=== PATIENT | female | born 1955 ===

== ENCOUNTER 2021-10-02 01:17 | Inpatient (IN) | payer OTHER, BC ==
--- OUTSIDE RECORDS SUMMARY | 2021-10-02 01:21 | XMS REPORT | Continuity of Care Document ---
:1955 Author Organization [facility] t Address [address] [place] [address] Care Team Providers Name Role Phone None Primary Care Physician Unavailable RAPHAEL ROBLERO Attending Clinician Unavailable Marilou, H Attending Clinician Unavailable OLGA KRAFT Attending Clinician Unavailable Osbaldo MARINELLI Attending Clinician RAPHAEL ROBLERO Admitting Clinician Unavailable Marilou, H Admitting Clinician Unavailable KNOW Admitting Clinician Unavailable Payers Payer Name Policy Type Policy Number Effective Date Expiration Date S ource Problems This patient has no known problems. Allergies, Adverse Reactions, Alerts This patient has no known allergies or adverse reactions. Social History Social Habit Start Date Stop Date Quantity Comments Source Exposure to Not sure [facility] SARS-CoV-2 (event) Alcohol intake 2021-09-01 2021-09-01 .29 [facility] 00:00:00 Tobacco use and 2021-08-30 2021-08-30 Smokeless tobacco [facility] exposure 00:00:00 00:00:00 non-user Sex Ass[birth year] [facility] 00:00:00 00:00:00 Smoking Status Start Date Stop Date Source Never smoked tobacco [facility] Medications Ordered Filled Start Stop Current Ordering Indication Dosage Frequency Signature Comments Components Source Medication Medication Date Date Medication? Clinician (SIG) Name Name metroNIDAZO 2021- Yes [id number] FLAGYL 500 [facility] (Flagyl) 2-27 02- MG [facility] 500 MG 00:00: 05:59 TABS TAKE tablet 00 :00 BY MOUTH TWO AT 1 PM,TWO AT 2 PM,TWO AT 11 PM NIGHT BEFORE SURGERY. TOTAL OF 6 PILLS. neomycin 2021- Yes [id number] Neomycin [place] ([facility] 10-01 [facility] 500 MG 00:00: 05:59 oral tabs tablet 00 :00 take by mouth two at 2:00 pm,two 4:00 pm and two at 8PM DAY BEFORE SURGERY levothyroxi 2020-08 Yes 100ug QD Take 100 U T ne 1-22 mcg [facility] (Synthroid, 00:00: mouth 1 Levoxyl) 00 (one) time 100 MCG each day. tablet levothyroxi 2020-08 Yes 100ug QD Take 100 U T ne 1-22 mcg [facility] (Synthroid, 00:00: mouth 1 Levoxyl) 00 (one) time 100 MCG each day. tablet levothyroxi 2020-08 Yes 100ug QD Take 100 U T ne 1-22 mcg [facility] (Synthroid, 00:00: mouth 1 Levoxyl) 00 (one) time 100 MCG each day. tablet levothyroxi 2020-08 Yes 100ug QD Take 100 U T ne 1-22 mcg [facility] (Synthroid, 00:00: mouth 1 Levoxyl) 00 (one) time 100 MCG each day. tablet levothyroxi 2020-08 Yes 100ug QD Take 100 U T ne 1-22 mcg [facility] (Synthroid, 00:00: mouth 1 Levoxyl) 00 (one) time 100 MCG each day. tablet Vital Signs Vital Name Observation Time Observation Value Comments Source Systolic blood pressure 2021-08-30 21:41:00 148 mm[Hg] [facility] Diastolic blood pressure 2021-08-30 21:41:00 94 mm[Hg] [facility] Heart rate 2021-08-30 21:41:00 67 /min [facility] Body temperature 2021-08-30 21:41:00 36.94 Joya [facility] Body height 2021-08-30 21:41:00 160 cm [facility] Body weight 2021-08-30 21:41:00 48.716 kg [facility] BMI 2021-08-30 21:41:00 19.03 kg/m2 [facility] Procedures This patient has no known procedures. Encounters Start End Encounter Admission Attending Care Care Encounter Source Date/Time Date/Time Type Type Clinicians Facility Department ID 2021-09-28 Inpatient OSBALDO [id number] [facility] 13:51:44 RAFAEL Argutea [facility] 2021-09-05 Inpatient EL Marilou, [facility] [id number] [facility] 00:06:00 Boo [id number] [facility] 2021-08-05 Inpatient EM Marilou, [facility] PH[facility] [id number] [facility] 00:06:00 Boo [id number] [facility] 2021-07-05 Inpatient EM Marilou, [facility] PH[facility] [id number] [facility] 00:06:00 Boo [id number] [facility] 2021-06-05 Inpatient EM Marilou, [facility] [id number] [facility] 00:06:00 Boo 06 [facility] 2021-06-05 Inpatient EM Marilou, [facility] PH[facility] [id number] [facility] 00:06:00 Boo [id number] [facility] 2021-05-05 Inpatient EM Marilou, [facility] PH[facility] [id number] [facility] 00:06:00 Boo [id number] [facility] 2021-02-02 Inpatient EL Marilou, [facility] PH[facility] [id number] [facility] 00:07:00 Boo [id number] [facility] 2021-01-09 Inpatient EL DEBECHE [facility] [id number] [facility] 16:35:00 ABENA [id number] [facility] 2021-09-15 2021-09-15 Telephone RJ Roblero [facility] [id number] [place] 00:00:00 00:00:00 Rafael [facility] [id number] H [facility] [place] [id number] 2021-09-12 2021-09-12 Telephone RJ Roblero [facility] [id number] [place] 00:00:00 00:00:00 [facility] [id number] H [facility]alth [place] [id number] 2021-09-06 2021-09-06 Telephone RJ Roblero [facility] [id number] [place] 00:00:00 00:00:00 [facility] [id number] H [facility] [place] [id number] 2021-09-04 2021-09-04 Telephone RJ Roblero [facility] [id number] [place] 00:00:00 00:00:00 [facility] [id number] H [facility] [place] [id number] 2021-08-14 2021-09-04 Outpatient EL Marilou, HCAJAYDE MARIE [id number] [facility] 09:04:00 00:00:00 Boo [id number] [facility] 2021-08-30 2021-08-30 Office RJ Roblero [facility] [id number] [place] 15:00:00 16:36:56 Visit [facility] [id number] H [facility] [place] [id number] 2021-07-13 2021-08-04 Outpatient EM Marilou, [facility] FRANK [id number] [facility] 07:26:00 00:00:00 Boo [id number] [facility] 2021-06-08 2021-07-04 Outpatient EM Marilou, [facility] FRANK [id number] [facility] 07:59:00 00:00:00 Boo [id number] [facility] 2021-05-25 2021-06-04 Outpatient EM Marilou, [facility] FRANK [id number] [facility] 07:25:00 00:00:00 Boo [id number] [facility] 2021-05-25 2021-06-04 Outpatient EM Marilou, [facility] [id number] [facility] 07:25:00 00:00:00 Boo Cook [facility] 2021-04-11 2021-05-04 Outpatient EM Marilou, [facility] PHYT [id number] [facility] 15:47:00 00:00:00 Boo 80 [facility] 2021-04-11 2021-04-11 Outpatient EM Marilou, [facility] PHYT [id number] [facility] 15:47:00 15:47:00 Boo [id number] [facility] 2021-01-16 2021-02-01 Outpatient EL Marilou, [facility] PHYT [id number] [facility] 12:13:00 00:00:00 Boo [id number] [facility] Results This patient has no known results.
[2021-10-02] MEDS ORDERED: ONDANSETRON 4 MG/2 ML VIAL ONE (01:59)
[2021-10-02] MEDS ORDERED: NA CHLORIDE 0.9% 1,000 ML ONE ×2 (02:00→08:10)
[2021-10-02 02:23] LABS: Absolute Lymphocytes (CBC) 0.5 K/uL (0.7-4.9); Hematocrit 38.1 % (36.0-45.0); MPV 7.8 fL (7.6-11.3); RBC Red Blood Cell Count 4.64 M/uL (3.86-4.86)
[2021-10-02 02:24] LABS: Protime INR 1.06
[2021-10-02 02:30] LABS: Urine Blood Negative (Negative); Urine Glucose Negative (Negative); Urine Protein Negative (Negative); Urine Specific Gravity 1.025 (1.005-1.030); Urine pH 5.5 (5.0-7.0)
[2021-10-02 02:37] LABS: Albumin 3.7 g/dL (3.4-5.0); Bilirubin Direct 0.3 mg/dL (0-0.2); Bilirubin Total 1.3 mg/dL (0.2-1.0); Magnesium 1.6 mg/dL (1.8-2.4); Phosphorus 2.2 mg/dL (2.5-4.9); Potassium 3.3 mmol/L (3.5-5.1); Troponin High Sensitivity 67.7 pg/mL (<58.9)
[2021-10-02] MEDS ORDERED: KCL 20 MEQ/100 mL IVPB 100 ML IV ONE (03:03)
[2021-10-02] MEDS ORDERED: LORazepam 2 MG/ML VIAL ONE (03:13)
[2021-10-02 03:18] LABS: Blood Morphology Comment NOT SEEN (NOT SEEN); Platelet Estimate ADEQ
[2021-10-02] MEDS ORDERED: NA CHLORIDE 0.9% 500 ML ONE (04:05)
--- NOTE | 2021-10-02 04:06 | ER ---
Nurse's Notes [facility] Name: Suri Rouse Age: 66 yrs Sex: Female : 1955 Arrival Date: 10/02/2021 Time: 01:18 Bed 20 Private MD: Diagnosis: Hypo-osmolality and hyponatremia;Hypokalemia;Dehydration;Anxiety Presentation: 10/02 02:45 Chief complaint: EMS states: PT WAS GOING TO HAVE A COLOSTOMY PLACED TOMORROW MORNING kd3 AND PT STARTED HAVING AMS. PT WAS TAKING PREP FOR SURGERY IN THE AM. Ebola Screen: No symptoms or risks identified at this time. Initial Sepsis Screen: Does the patient meet any 2 criteria? No. Patient's initial sepsis screen is negative. Does the patient have a suspected source of infection? No. Patient's initial sepsis screen is negative. Risk Assessment: Do you want to hurt yourself or someone else? Patient reports no desire to harm self or others. Onset of symptoms was October 02, 2021. 02:45 Method Of Arrival: EMS kd3 02:45 Acuity: SARAH 3 kd3 15:58 Coronavirus screen: At this time, the client does not indicate any symptoms associated ld1 with coronavirus-19. Triage Assessment: 02:52 General: Appears uncomfortable, ill, Behavior is calm, cooperative. Pain: Denies pain. kd3 Neuro: Level of Consciousness is awake, confused, Oriented to person, place. Respiratory: Respiratory effort is unlabored, Respiratory pattern is hyperventilation. 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 Flu vaccine is not up to date. It has been more than one year since last vaccine. - Social history:: Smoking status: unknown. Screenin:53 Abuse screen: Denies threats or abuse. Denies injuries from another. Nutritional kd3 screening: No deficits noted. Tuberculosis screening: No symptoms or risk factors identified. Fall Risk IV access (20 points). Assessment: 03:46 General: Appears uncomfortable, ill, Behavior is cooperative. Neuro: Level of kd3 Consciousness is confused, Oriented to person, place. Vital Signs: 02:05 BP 145 / 75; Pulse 82; Resp 23; Temp 97.9; Pulse Ox 100% on R/A; kd3 03:47 BP 135 / 69; Pulse 82; Resp 20; Pulse Ox 100% on R/A; kd3 03:48 Weight 47.63 kg; Height 5 ft. 3 in. (160.02 cm); kd3 06:26 BP 128 / 66; Pulse 90; Resp 17; Pulse Ox 99% on R/A; Pain 0/10; kd3 03:48 Body Mass Index 18.60 (47.63 kg, 160.02 cm) kd3 ED Course: 01:18 Patient arrived in ED. wm 01:19 Blanco Lopez MD is Attending Physician. mh7 01:31 Magaly Ramos, RN is Primary Nurse. kd3 01:54 XRAY Chest (1 view) In Process Unspecified. EDMS 02:52 Triage completed. kd3 02:53 Arm band placed on left wrist. EKG completed in triage. Results shown to MD. kd3 02:54 Bed in low position. Call light in reach. Side rails up X2. kd3 03:29 CT Head Brain wo Cont In Process Unspecified. EDMS 04:03 Rafael Mcknight is Hospitalizing Provider. 7 07:23 Primary Nurse role handed off by Magaly Ramos, RN tw2 07:23 Cheyenne Mcgill, ERIN is Primary Nurse. tw2 15:53 No provider procedures requiring assistance completed. Patient admitted, IV remains in ld1 place. Administered Medications: 02:03 Drug: NS 0.9% 1000 ml Route: IV; Rate: 1000 ml; Site: right wrist; kd3 06:29 Follow up: IV Status: Completed infusion; IV Intake: 1000ml kd3 02:03 Drug: Zofran (Ondansetron) 4 mg Route: IVP; Site: right wrist; kd3 06:28 Follow up: Response: No adverse reaction kd3 03:08 Drug: Potassium Chloride 20 mEq Route: IV; Rate: per protocol; Site: right wrist; sf1 06:28 Follow up: IV Status: Completed infusion kd3 03:14 Drug: Ativan (LORazepam) 0.5 mg Route: IVP; Site: right wrist; sf1 06:28 Follow up: Response: No adverse reaction kd3 Intake: 06:29 IV: 1000ml; Total: 1000ml. kd3 Outcome: 04:05 Decision to Hospitalize by Provider. [facility] 15:54 Admitted to Med/surg accompanied by tech, via wheelchair, room 212, with chart, Report ld1 called to ERIN Tovar 15:54 Condition: stable 15:54 Instructed on the need for admit. 16:06 Patient left the ED. ld1 Signatures: Dispatcher [employer] EDCheyenne Gonzalez RN RN 2 Blanco Lopez MD MD 7 Ines Mckeon RN RN ld1 Fatimah Sosa Kyli, RN RN kd3 Gladys King RN RN sf1 Corrections: (The following items were deleted from the chart) 02:52 02:52 PMHx: None; kd3 kd3 02:58 02:52 Home Meds: None; kd3 kd3 02:58 02:52 PSHx: None; kd3 kd3
--- NOTE | 2021-10-02 04:06 | EDPHYS ---
Physician Documentation [facility] Name: Suri Rouse Age: 66 yrs Sex: Female : 1955 Arrival Date: 10/02/2021 Time: 01:18 Bed 20 Private MD: ED Physician Blanco Lopez HPI: 10/02 02:10 This 66 yrs old Unknown Female presents to ER via Unassigned with complaints of Altered mh7 Mental Status. 02:10 The patient presents with confusion, trouble concentrating. Onset: The symptoms/episode mh7 began/occurred last night. Possible causes: Bowel prep for surgery. Associated signs and symptoms: Pertinent positives: confusion, nausea, vomiting, Pertinent negatives: chest pain, combativeness, diaphoresis, headache, numbness, seizure, shortness of breath, tingling, weakness. Current symptoms: In the emergency department the patient's symptoms are unchanged from the initial presentation. Patient's baseline: Neuro: alert and fully oriented, Motor: no deficits, Ambulation: walks without assistance, Speech: normal. 02:10 Patient was doing bowel prep with MiraLAX yesterday and later started having some mh7 confusion and anxiety. Has been of EMS to bring to hospital for evaluation.. 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 Flu vaccine is not up to date. It has been more than one year since last vaccine. - Social history:: Smoking status: unknown. ROS: 02:10 Unable to obtain ROS due to Confused, anxious. mh7 Exam: 02:10 Head/Face: Normocephalic, atraumatic. Eyes: Pupils equal round and reactive to light, mh7 extra-ocular motions intact. Lids and lashes normal. Conjunctiva and sclera are non-icteric and not injected. Cornea within normal limits. Periorbital areas with no swelling, redness, or edema. Neck: Trachea midline, no thyromegaly or masses palpated, and no cervical lymphadenopathy. Supple, full range of motion without nuchal rigidity, or vertebral point tenderness. No Meningismus. Chest/axilla: Normal chest wall appearance and motion. Nontender with no deformity. No lesions are appreciated. Cardiovascular: Regular rate and rhythm with a normal S1 and S2. No gallops, murmurs, or rubs. Normal PMI, no JVD. No pulse deficits. Respiratory: Lungs have equal breath sounds bilaterally, clear to auscultation and percussion. No rales, rhonchi or wheezes noted. No increased work of breathing, no retractions or nasal flaring. Abdomen/GI: Soft, non-tender, with normal bowel sounds. No distension or tympany. No guarding or rebound. No evidence of tenderness throughout. Back: No spinal tenderness. No costovertebral tenderness. Full range of motion. Skin: Warm, dry with normal turgor. Normal color with no rashes, no lesions, and no evidence of cellulitis. MS/ Extremity: Pulses equal, no cyanosis. Neurovascular intact. Full, normal range of motion. 02:10 Constitutional: The patient appears in no acute distress, alert, awake, anxious. 02:10 Neuro: Orientation: to person, place, Mentation: slow to respond, confused, Memory: immediate memory is intact, recent memory is intact, Cranial nerves: is grossly normal based on the patient's age, Cerebellar function: is grossly normal based on the patient's age, Motor: is normal, Sensation: is normal, Gait: not tested. seizure activity, is not displayed by the patient, Abnormal movements: Tremulous. 02:10 Psych: Behavior/mood is cooperative, anxious, Oriented to person, place, Patient has no thoughts/intents to harm self or others. Delusions/hallucinations are not present. 02:10 ECG was reviewed by the Attending Physician. [facility] Vital Signs: 02:05 BP 145 / 75; Pulse 82; Resp 23; Temp 97.9; Pulse Ox 100% on R/A; kd3 03:47 BP 135 / 69; Pulse 82; Resp 20; Pulse Ox 100% on R/A; kd3 03:48 Weight 47.63 kg; Height 5 ft. 3 in. (160.02 cm); kd3 06:26 BP 128 / 66; Pulse 90; Resp 17; Pulse Ox 99% on R/A; Pain 0/10; kd3 03:48 Body Mass Index 18.60 (47.63 kg, 160.02 cm) kd3 MDM: 04:02 Differential Diagnosis: electrolyte abnormality, hypoglycemia, intracranial bleed, mh7 seizure, UTI, volume depletion. Data reviewed: vital signs, nurses notes, EMS record, lab test result(s), cardiac enzymes, CBC, electrolytes, urinalysis, EKG, radiologic studies, CT scan, plain films. Data interpreted: Pulse oximetry: on room air is 100 %. Interpretation: normal. Counseling: I had a detailed discussion with the patient and/or guardian regarding: the historical points, exam findings, and any diagnostic results supporting the discharge/admit diagnosis, lab results, radiology results, the need for further work-up and treatment in the hospital. Response to treatment: the patient's symptoms have markedly improved after treatment. 04:05 Patient medically screened. 10/02 01:26 Order name: Basic Metabolic Panel; Complete Time: 02:47 10/02 01:26 Order name: CBC with Diff; Complete Time: 03:40 10/02 01:26 Order name: LFT's; Complete Time: 02:47 10/02 01:26 Order name: Magnesium; Complete Time: 02:47 10/02 01:26 Order name: NT PRO-BNP; Complete Time: 02:47 10/02 01:26 Order name: PT-INR; Complete Time: 02:25 7 10/02 01:26 Order name: Troponin HS; Complete Time: 02:47 7 10/02 02:13 Order name: Phosphorus; Complete Time: 02:47 EDMS 10/02 02:13 Order name: Lipase; Complete Time: 02:47 EDMS 10/02 02:30 Order name: Urine Dipstick-Ancillary MS 10/02 02:31 Order name: Manual Differential; Complete Time: 03:40 [facility] 10/02 02:53 Order name: COVID-19/FLU A+B/RSV (Document "Date of Onset" if Symptomatic); Complete [facility] Time: 10:30 10/02 01:26 Order name: XRAY Chest (1 view) [facility] 10/02 01:26 Order name: EKG; Complete Time: 01:27 10/02 01:26 Order name: Cardiac monitoring; Complete Time: 01:31 7 10/02 01:26 Order name: EKG - Nurse/Tech; Complete Time: :55 7 10/02 01:26 Order name: IV Saline Lock; Complete Time: 01:55 10/02 01:26 Order name: Labs collected and sent; Complete Time: 01:55 7 10/02 02:49 Order name: CT Head Brain wo Cont 7 10/02 07:56 Order name: Troponin High Sensitivity; Complete Time: 10:30 EDMS 10/02 10:20 Order name: Basic Metabolic Panel; Complete Time: 10:30 EDMS 10/02 10:48 Order name: Basic Metabolic Panel [facility] 10/02 14:00 Order name: Troponin High Sensitivity [facility] 10/02 15:39 Order name: NT PRO-BNP [facility] 10/02 01:26 Order name: O2 Per Protocol; Complete Time: 01: 7 10/02 01:26 Order name: O2 Sat Monitoring; Complete Time: : [facility] 10/02 01:26 Order name: Urine Dipstick-Ancillary (obtain specimen); Complete Time: 02:59 EC:10 Rate is 79 beats/min. Rhythm is regular, Normal Sinus Rhythm with No ectopy. QRS [place] [facility] is Normal. DC interval is normal. QRS interval is normal. QT interval is normal. No Q waves. T waves are Normal. No ST changes noted. Clinical impression: Normal ECG. Administered Medications: 02:03 Drug: NS 0.9% 1000 ml Route: IV; Rate: 1000 ml; Site: right wrist; kd3 06:29 Follow up: IV Status: Completed infusion; IV Intake: 1000ml kd3 02:03 Drug: Zofran (Ondansetron) 4 mg Route: IVP; Site: right wrist; kd3 06:28 Follow up: Response: No adverse reaction kd3 03:08 Drug: Potassium Chloride 20 mEq Route: IV; Rate: per protocol; Site: right wrist; sf1 06:28 Follow up: IV Status: Completed infusion kd3 03:14 Drug: Ativan (LORazepam) 0.5 mg Route: IVP; Site: right wrist; sf1 06:28 Follow up: Response: No adverse reaction kd3 Disposition Summary: 10/02/21 04:05 Hospitalization Ordered Hospitalization Status: Inpatient Admission mh7 Provider: Rafael Mcknight Condition: Stable mh7 Problem: new mh7 Symptoms: have improved mh7 Bed/Room Type: Standard [facility] Location: Telemetry/MedSurg (Inpatient)(10/02/21 14:24) bd Room Assignment: 212(10/02/21 14:24) bd Diagnosis - Hypo-osmolality and hyponatremia mh7 - Hypokalemia mh7 - Dehydration mh7 - Anxiety mh7 Forms: - Medication Reconciliation Form mh7 - SBAR form mh7 Signatures: Dispatcher [employer] EDMS Christelle Linares Irene, RN RN iw Perez Medellin PA PA cp Holmes, Maurice, MD MD 7 Magaly Ramos RN RN kd3 Gladys King RN RN [email or web address] Nancy Cramer PA PA sb3 Corrections: (The following items were deleted from the chart) 02:13 01:43 LIPASE+C.LAB.BRZ ordered. EDMS EDMS 02:13 01:43 PHOSPHORUS+C.LAB.BRZ ordered. EDMS EDMS 02:52 02:52 PMHx: None; kd3 kd3 02:58 02:52 Home Meds: None; kd3 kd3 02:58 02:52 PSHx: None; kd3 kd3 09:11 04:05 Telemetry/MedSurg (Inpatient) mh7 iw 09:11 04:05 mh7 iw 14:24 09:11 [facility] ER HOLD iw bd 14:24 09:11 ERHOLD- iw bd
--- NOTE | 2021-10-02 04:38 | P.HP ---
Certification for Inpatient Patient admitted to: Inpatient With expected LOS: >2 Midnights Patient will require the following post-hospital care: None Practitioner: I am a practitioner with admitting privileges, knowledge of patient current condition, hospital course, and medical plan of care. Services: Services provided to patient in accordance with Admission requirements found in Title 42 Section 412.3 of the Code of Federal Regulations Patient History Date of Service: 10/02/21 Primary Care Provider: Denise Cornejo NP Reason for admission: Hyponatremia, Dehydration History of Present Illness: Patient is a 66-year-old female with hypothyroidism and bowel/bladder dysynergia who presented to the ED with altered mental status, diarrhea, and vomiting. Patient had been using MiraLAX all day to prep for an elective colostomy at [facility] in [place]. Patient's noticed that she was starting to act different and thought it might be anxiety related however she stopped being able to answer basic questions like where she was so he decided to bring her in. In the ED, CT head was negative, sodium 122, potassium 3.3, chloride 92, magnesium 1.6, troponin high-sensitivity 67.7, BNP 252, 4+ ketones in urine. She was given 1 L bolus of NS in the ED along with 0.5 Ativan and Zofran. Upon my assessment and per patient's , patient is back to her baseline and answering questions appropriately. Patient will be admitted for IV hydration and treatment of hyponatremia. Home medications list reviewed: Yes - Past Medical/Surgical History Diabetic: No -: Hypothyroidism -: Bladder dyssynergia -: Appendectomy Psychosocial/ Personal History: Patient lives at home with her . - Family History Mother -: Heart disease Father -: Heart disease - Social History Smoking Status: Never smoker Alcohol use: No CD- Drugs: No Place of Residence: Home Review of Systems General: Weakness, As per HPI Gastrointestinal: Nausea, Vomiting, Abdominal Pain, Diarrhea Neurological: Confusion, As per HPI Physical Examination - Physical Exam General: Alert, In no apparent distress, Oriented x3 HEENT: Atraumatic, PERRLA, Other (Dry mucous membranes), EOMI, Sclerae nonicteric Neck: Supple, 2+ carotid pulse no bruit, No LAD, Without JVD or thyroid abnormality Respiratory: Clear to auscultation bilaterally, Normal air movement Cardiovascular: Regular rate/rhythm, Normal S1 S2 Gastrointestinal: Normal bowel sounds, No tenderness Musculoskeletal: No tenderness Integumentary: No rashes Neurological: Normal speech, Normal strength at 5/5 x4 extr, Normal tone, Normal affect - Studies Laboratory Data (last 24 hrs) 10/02/21 01:42: Phosphorus Cancelled, Lipase Cancelled 10/02/21 01:25: PT 12.2, INR 1.06 10/02/21 01:25: WBC 6.70, Hgb 13.1, Hct 38.1, Plt Count 188 10/02/21 01:25: Sodium 122 L, Potassium 3.3 L, BUN 16, Creatinine 0.70, Glucose 128 H, Phosphorus 2.2 L, Magnesium 1.6 L, Total Bilirubin 1.3 H, AST 25, ALT 28, Alkaline Phosphatase 75, Lipase 63 L Assessment and Plan - Problems (Diagnosis) (1) Hyponatremia Current Visit: Yes Status: Acute (2) Dehydration Current Visit: Yes Status: Acute (3) Hypothyroidism Current Visit: No Status: Chronic Qualifiers: Hypothyroidism type: unspecified Qualified Code(s): E03.9 - Hypothyroidism, unspecified (4) Elevated troponin Current Visit: Yes Status: Acute - Plan -Patient's hyponatremia and resolved AMS is secondary to dehydration. She was given 1 L bolus of NS in the ED. We will continue NS at 100 cc/hour. Will discuss hypertonic saline therapy with attending. BMP ordered for later today to recheck sodium -Potassium, magnesium, and phosphorus were all low. Patient placed on electrolyte repletion protocol -Patient's initial HS troponin was elevated at 67.7. EKG was negative. Will repeat every q6 H x2 -Zofran as needed nausea and Ativan as needed anxiety -Clear liquid diet as tolerated DVT PPx: Lovenox Code: Full - Advance Directives Does patient have a Living Will: No Does patient have a Durable POA for Healthcare: No - Code Status/Comfort Care Code Status Assessed: Yes (Full) Critical Care: No Time Spent Managing Pts Care (In Minutes): 70
[2021-10-02] MEDS ORDERED: NA CHLORIDE 0.9% 1,000 ML IV SCH ×3 (06:57→10:00)
[2021-10-02] MEDS ORDERED: ACETAMINOPHEN 500 MG TAB PO PRN (06:57)
[2021-10-02] MEDS ORDERED: LORazepam 2 MG/ML VIAL IV PRN (06:57)
[2021-10-02] MEDS ORDERED: ONDANSETRON 4 MG/2 ML VIAL IV PRN (06:57)
[2021-10-02 07:09] LABS: SARS-COV-2 RT PCR NEGATIVE (NEGATIVE)
[2021-10-02 07:14] VITALS: BMI 19.2
[2021-10-02] MEDS ORDERED: INFLUENZA VACCINE (for 6+ mo) 0.5 ML DOSE IMVAC ONE (08:00)
[2021-10-02] MEDS ORDERED: ENOXAPARIN 40 MG/0.4 ML SQ ONE (08:11)
[2021-10-02] MEDS: ENOXAPARIN 40 MG/0.4 ML SQ SCH (09:00)
[2021-10-02 10:19] LABS: Potassium 4.1 mmol/L (3.5-5.1)
[2021-10-02 10:48] LABS: Potassium 4.2 mmol/L (3.5-5.1)
[2021-10-02] MEDS ORDERED: THIAMINE 200 MG/2 ML INJ IVP ONE (11:55)
[2021-10-02] MEDS: D5W 1,000 ML IV SCH ×3 (11:55→20:29)
[2021-10-02] MEDS ORDERED: THIAMINE 200 MG/2 ML INJ ONE (11:59)
[2021-10-02] MEDS ORDERED: D5W 1,000 ML IV ONE (11:59)
--- NOTE | 2021-10-02 12:14 | RAD REPORT ---
EXAM DESCRIPTION: CT - Head Brain Wo Cont - 10/02/2021 6:36 am CLINICAL HISTORY: CONFUSED TECHNIQUE: Axial computed tomography images of the head/brain without intravenous contrast. Sagitt al and coronal reformatted images were created and reviewed. This CT exam was performed using one o r more of the following dose reduction techniques: automated exposure control, adjustment of the mA and/or kV according to patient size, and/or use of iterative reconstruction technique. COMPARISON: No relevant prior studies available. FINDINGS: Artifacts: Motion artifact degrades image quality. Brain: CSF density focus at the inferior aspect of the left basal ganglia most compatible with a pr ominent perivascular space. No hemorrhage. No significant white matter disease. Ventricles: Unremarkable. No ventriculomegaly. Bones/joints: Unremarkable. No acute fracture. Soft tissues: Unremarkable. Vasculature: There is atherosclerotic disease of the internal carotid arteries bilaterally. Sinuses: Right maxillary sinus mucous retention cyst/polyp. Mastoid air cells: Unremarkable as visualized. No mastoid effusion. IMPRESSION: 1. No acute hemorrhage, focal mass or large territory infarction. 2. Other findings as above. Electronically signed by: Josr Goodman MD 10/02/2021 3:45 AM [facility] Due to temporary technical issues with the PACS/Fluency reporting system, reports are being signed by the in house radiologist without review as a courtesy to ensure prompt reporting. The interpreting r adiologist is fully responsible for the content of the report.
--- NOTE | 2021-10-02 12:20 | RAD REPORT ---
EXAM DESCRIPTION: RAD - Chest Single View - 10/02/2021 1:54 am CLINICAL HISTORY: The patient is 66 years old and is Female; CONGESTION TECHNIQUE: Frontal view of the chest. COMPARISON: No relevant prior studies available. FINDINGS: LUNGS: Unremarkable. No consolidation. PLEURAL SPACE: Unremarkable. No pneumothorax. HEART: Unremarkable. No cardiomegaly. MEDIASTINUM: Unremarkable. BONES/JOINTS: Unremarkable. UPPER ABDOMEN: Unremarkable as visualized. IMPRESSION: No acute cardiopulmonary process. Electronically signed by: Gillian Ulrich MD 10/02/2021 2:25 AM [facility] Due to temporary technical issues with the PACS/Fluency reporting system, reports are being signed by the in house radiologist without review as a courtesy to ensure prompt reporting. The interpreting r adiologist is fully responsible for the content of the report.
[2021-10-02 16:57] VITALS: O2SAT 99
--- NOTE | 2021-10-02 16:58 | P.PN ---
Date of Service: 10/02/21 Patient seen and examined. She has no complaint. Serum level improved to normal with IV normal saline. IV normal saline rate reduced per nephrology. Troponin mildly elevated but trended flat. No ACS. Patient was to have a colonoscopy done. Cardiology consulted given elevated troponin which may indicate need for preop evaluation before her procedure. Echocardiogram requested. Advance diet as tolerated. Continue her home medications.
[2021-10-02 18:58] LABS: Potassium 4.1 mmol/L (3.5-5.1)
[2021-10-02] MEDS ORDERED: DESMOPRESSIN 4 MCG/ML AMP IV ONE (21:00)
--- NOTE | 2021-10-02 22:17 | CON ---
Date of Consultation: 10/02/2021 Reason For Consultation: Elevated troponin. History Of Present Illness: 66-year-old female with history of hypothyroidism, presented to the [facility] room after vomiting and diarrhea. She had a prep for colonoscopy and she did not react well to it and had significant diarrhea and vomiting and came into the emergency room dehydrated. Among blo od work that was done, highly sensitive troponin was obtained and was borderline elevated. The patie nt denies having any chest pain. She is otherwise healthy. Does not have any cardiac history and ac tive and exercises a mile every day without any symptoms. Past Medical History: As outlined above in the HPI. Medications: Refer reconciliation sheet for detailed list. Allergies: NO KNOWN DRUG ALLERGIES. Family History: No premature coronary artery disease. Social History: Does not smoke or drink. Does not use any drugs. Review of Systems: All systems reviewed and they were negative except as mentioned in HPI. Physical Examination: Vital Signs: Reviewed. Head and Neck: Pupils are equal, reactive to light. Intact eye movements. No JVD. No cervical lym phadenopathy. Neck: Supple. Thyroid is not enlarged. Lungs: Clear to auscultation bilaterally. No rhonchi, rales, or crackles. No accessory muscle use. Heart: Regular rate and rhythm. No extra sounds. Abdomen: Soft and nontender. Bowel sounds positive. No organomegaly. No masses or hernia. No rig idity or rebound. Extremities: No edema, clubbing, or cyanosis. Intact pulses. Skin: No rashes or nodules. Neurologic: Alert, awake, and oriented x3. No acute focal deficits appreciated. Lymph Nodes: No cervical or axillary lymphadenopathy. Investigations: Troponin, highly sensitive, first one was 72; the second one was normal at 58. NT-p roBNP was 510. Assessment And Recommendation: Borderline elevated troponin. EKG is normal. No symptoms. This is likely a mild leak due to the overall condition. Obtain an echocardiogram and otherwise, no further cardiac workup is necessary. This patient is very active, no significant risk factors for coronary a rtery disease and this mild troponin leak is unlikely to be of any significance, however, I recommend ed to the patient to follow up as an outpatient once discharged and properly hydrated. SR/MODL Voice ID: [id number] Report ID: [id number]
[2021-10-02 23:54] LABS: Potassium 3.8 mmol/L (3.5-5.1)
[2021-10-03] MEDS ORDERED: DESMOPRESSIN 4 MCG/ML AMP IV ONE (00:33)
[2021-10-03] MEDS: D5W 1,000 ML IV SCH ×2 (01:00→05:32)
--- NOTE | 2021-10-03 02:02 | CON ---
Date of Consultation: 10/02/2021 Chief Complaint: Hyponatremia and volume depletion. History Of Present Illness: The patient is a 66-year-old woman with history of hypothyroidism, bowel and bladder dyssynergia. She presented to emergency room because of confusion, diarrhea, and vomiting. The patient has been using MiraLAX in preparation for a colonoscopy. The patient's noticed that the patient became confused and she had some anxiety as well. She did not answer simple questions and he decided to bring her to emergency room. CT scan was negative. Sodium level was 122, potassium 3.3, chloride 92, magnesium 1.6, troponin was 67.7. BNP 252. Urine showed 4+ ketones. The patient received 1 L of volume of normal saline last night along with Ativan and Zofran. Subsequently this morning, Nephrology consultation was requested and blood work was requested by me to be retrieved from a.m., which the results have not been posted and the patient was started on D5W to prevent over correction. The patient subsequently was transferred to the floor and blood work, which was ordered at 3 o'clock was not posted. I ordered stat labs at 1700 and results were available in at least 2 hours. I ordered DDAVP and D5W to increase from 125 to 200. Review of Systems: Respiratory: The patient denies shortness of breath. HEENT: Denies headaches and vision changes. Cardiovascular: Denies chest pain or palpitations. GI: She had nausea and vomiting at home, although during the hospitalization nausea and vomiting were controlled. She denies melena or hematemesis. : Denies dysuria or hematuria. All other systems were reviewed and all are negative. Past Medical History: Hypothyroidism, bladder dyssynergia, and appendectomy. Family History: Father, heart disease. Social History: Denies tobacco, alcohol, or illicit drugs. Physical Examination: General: The patient is not in acute distress. Eyes: Anicteric sclerae. EOMI. Ears, Nose, Mouth, and Throat: Oral mucosa moist. No pallor. Neck: Supple. No bruits. Lungs: Clear to auscultation bilaterally. Heart: S1, S2. Abdomen: Soft, benign. Extremities: No edema. Laboratory Data: Lab work first round was pending. PT 12.2. WBC 6.7, hemoglobin 13.1, platelet count 188. Sodium 122, potassium 3.3, BUN 16, creatinine 0.7, glucose 128, magnesium 1.6, phosphorus 2.2, bilirubin 1.3. Impression And Plan: 1. Hyponatremia, associated with volume depletion. The patient received normal saline infusion last night and subsequently lab work this morning shows sodium over 130. I changed IV fluids from normal saline to D5W and I ordered followup tests, which were available this evening and I increased again D5W from 125 to 200 and ordered DDAVP to control the correction of the hyponatremia. The patient remains asymptomatic. Plan is to follow up with bmp and adjust treatment. The patient may require additional DDAVP. 2. Troponin was elevated. I discussed with the nurse to consult extension course coordinator. 3. Nausea and vomiting. Continue Zofran. 4. Volume depletion. Continue p.o. intake as tolerated. No fluid restriction at this point. The patient will require D5W to slow down correction of hyponatremia. 5. Hypothyroidism. Plan is to check TSH and cortisol level. EB/MODL Voice ID: [id number] Report ID: [id number] KEVIN
[2021-10-03 04:16] LABS: Absolute Lymphocytes (CBC) 1.4 K/uL (0.7-4.9); Hematocrit 34.1 % (36.0-45.0); Lymphocytes % 24.7 % (15.3-44.8); MPV 7.7 fL (7.6-11.3); RBC Red Blood Cell Count 4.14 M/uL (3.86-4.86)
[2021-10-03 04:46] LABS: Bilirubin Total 0.5 mg/dL (0.2-1.0); Magnesium 1.9 mg/dL (1.8-2.4); Phosphorus 2.3 mg/dL (2.5-4.9); Potassium 3.3 mmol/L (3.5-5.1); Protein, Total 5.7 g/dL (6.4-8.2); Thyroid Stimulating Hormone 0.031 uIU/mL (0.360-3.740)
[2021-10-03] MEDS ORDERED: POTASSIUM CL SA 10 MEQ TAB PO ONE (05:15)
[2021-10-03] MEDS ORDERED: LEVOTHYROXINE SOD 0.1 MG TAB PO SCH (06:30)
[2021-10-03] MEDS: ENOXAPARIN 40 MG/0.4 ML SQ SCH (08:46)
[2021-10-03] MEDS: POTASS/SODIUM PHOSPHATE 1 PKT POWD.PACK PO SCH (08:46)
[2021-10-03] MEDS ORDERED: HOME MED 1 EA UNK (Levothyroxine Sodium [Levothyroxine] 100 MCG Capsule) PO SCH (09:00)
[2021-10-03 09:04] LABS: Potassium 3.8 mmol/L (3.5-5.1)
--- NOTE | 2021-10-03 13:00 | ECHO ---
HEIGHT: 5 ft 2 in WEIGHT: 105 lb 0 oz DATE OF STUDY: 10/03/[address]: mian wasserman 2-DIMENSIONAL: YES M.MODE: YES DOPPLER: YES COLOR FLOW: YES TDS: NO PORTABLE: NO DEFINITY: NO BUBBLE STUDY: NO DIAGNOSIS: ELEVATED TROPONIN CARDIAC HISTORY: CATHERIZATION: NO SURGERY: NO PROSTHETIC VALVE: NO PACEMAKER: NO MEASUREMENTS (cm) DIASTOLIC (NORMALS) SYSTOLIC (NORMALS) IVSd 0.9 (0.6-1.2) LA Diam 2.6 (1.9-4.0) LVEF 68% LVIDd 4.0 (3.5-5.7) LVIDs 2.5 (2.0-3.5) %FS 38% LVPWd 0.9 (0.6-1.2) Ao Diam 2.3 (2.0-3.7) 2 DIMENSIONAL ASSESSMENT: RIGHT ATRIUM: NORMAL LEFT ATRIUM: NORMAL RIGHT VENTRICLE: NORMAL LEFT VENTRICLE: NORMAL TRICUSPID VALVE: NORMAL MITRAL VALVE: NORMAL PULMONIC VALVE: NORMAL AORTIC VALVE: NORMAL PERICARDIAL EFFUSION: NONE AORTIC ROOT: NORMAL LEFT VENTRICULAR WALL MOTION: NORMAL DOPPLER/COLOR FLOW: NORMAL COMMENTS: NORMAL 2D ECHOCARDIOGRAM WITH DOPPLER. NO WALL MOTION ABNORMALITY. NO EFFUSION. TECHNOLOGIST: Robbi SCHOFIELD
[2021-10-03 14:56] LABS: Potassium 3.9 mmol/L (3.5-5.1)
--- NOTE | 2021-10-03 17:23 | PN ---
Date of Progress Note: 10/03/2021 Subjective: The patient was admitted with symptomatic hyponatremia. The patient had over correction over the night. The patient received desmopressin and D5 to slow the rise. Currently, latest sodiu m is down to 127, the day before was 122. Physical Examination: Vital Signs: Blood pressure 137/67, pulse of 63, afebrile. The patient had good urine output of 180 0. Chest: Clear to auscultation. Heart: S1, S2. Regular. Abdomen: Soft, nontender. Extremities: No edema. Neurological: Alert, oriented x3. No focal. No tremor. Laboratory Data: WBC 5.8, H and H 11.8/34.1. Sodium 127, potassium 3.8, bicarb 23, BUN 8, creatinin e 0.7, calcium 8.5. Current Medications: The patient on include; 1.Lovenox. 2.Tylenol. 3.Desmopressin received yesterday. 4.KCl. Assessment And Plan: 1.Hyponatremia secondary to depletional with over correction, recovered. I am going to discontinue D5 and we will repeat lab in 4 hours. If sodium is on appropriate rise, the patient okay for from th e Renal standpoint for discharge planning to follow up in the office in 2-3 weeks. 2.Hypokalemia. We will supplement. 3.Hypophosphatemia. We will supplement. 4.Hypertension, controlled, optimal. SHABANA/GHASSAN Voice ID: [id number] Report ID: [id number]
--- NOTE | 2021-10-03 17:37 | P.DS ---
Admission Date: 10/02/21 Discharge Date: 10/03/21 Primary Care Provider: Denise Cornejo HEAD CUSTODIAN Disposition: ROUTINE DISCHARGE Discharge Condition: FAIR Reason for Admission: Hyponatremia, Dehydration Consultations: Cardiology Nephrology Procedures: Echo Problem List Hyponatremia secondary to dehydration / hypovolemia Hypothyroidism Elevated troponin, demand ischemia Brief History of Present Illness: 66-year-old female with hypothyroidism and bowel/bladder dysynergia who presented to the ED with altered mental status, diarrhea, and vomiting. Patient had been using MiraLAX all day to prep for an elective colostomy at [facility] in [place]. Patient's noticed that she was starting to act different and thought it might be anxiety related however she stopped being able to answer basic questions like where she was so he decided to bring her in. In the ED, CT head was negative, sodium 122, potassium 3.3, chloride 92, magnesium 1.6, troponin high-sensitivity 67.7, BNP 252, 4+ ketones in urine. She was given 1 L bolus of NS in the ED along with 0.5 Ativan and Zofran. Upon my assessment and per patient's , patient is back to her baseline and answering questions appropriately. Patient will be admitted for IV hydration and treatment of hyponatremia. Hospital Course: Patient presented to the ED with hyponatremia, felt secondary to dehydration/hypovolemia from her preoperative prep. She initially had overcorrection of her sodium with normal saline. Nephrology was consulted and patient's IV fluids were changed to D5W. Patient's sodium downtrended to 127, 126, and remained stable at 126 after discontinuation of IV fluids. Clinically she improved and was feeling back to her normal baseline. Repeat BMP was obtained and shows stable sodium. Patient was deemed stable for discharge home. On admission, she was noted to have mild elevated troponin, which trended down. Cardiology was consulted. Echocardiogram was obtained and normal. Suspect troponin leak secondary to some mild demand ischemia. Follow-up with nephrology in 2-3 weeks Follow-up with PCP within 1 week. Recommend repeat BMP in 1 week Vital Signs/Physical Exam: Temp Pulse Resp BP Pulse Ox 99.0 F 67 16 143/67 H 100 10/03/21 16:00 10/03/21 16:00 10/03/21 16:00 10/03/21 16:00 10/03/21 16:00 General: Alert, In no apparent distress HEENT: Sclerae nonicteric Respiratory: Clear to auscultation bilaterally, Normal air movement Cardiovascular: No edema, Regular rate/rhythm Gastrointestinal: Soft and benign, Non-distended, No tenderness Integumentary: No significant lesion, No tenderness/swelling Neurological: Normal speech, Normal affect Laboratory Data at Discharge: WBC 5.80 K/uL (4.3-10.9) 10/03/21 03:55 Hgb 11.8 g/dL (12.0-15.0) L 10/03/21 03:55 Hct 34.1 % (36.0-45.0) L 10/03/21 03:55 Plt Count 176 K/uL (152-406) 10/03/21 03:55 PT 12.2 SECONDS (9.5-12.5) 10/02/21 01:25 INR 1.06 10/02/21 01:25 Sodium 126 mmol/L (136-145) L 10/03/21 14:35 Potassium 3.9 mmol/L (3.5-5.1) 10/03/21 14:35 BUN 9 mg/dL (7-18) 10/03/21 14:35 Creatinine 0.75 mg/dL (0.55-1.3) 10/03/21 14:35 Glucose 114 mg/dL (74-106) H 10/03/21 14:35 Phosphorus 2.3 mg/dL (2.5-4.9) L 10/03/21 03:55 Magnesium 1.9 mg/dL (1.8-2.4) 10/03/21 03:55 Total Bilirubin 0.5 mg/dL (0.2-1.0) 10/03/21 03:55 AST 32 U/L (15-37) 10/03/21 03:55 ALT 29 U/L (12-78) 10/03/21 03:55 Alkaline Phosphatase 58 U/L (45-117) 10/03/21 03:55 Lipase Cancelled 10/02/21 01:42 Home Medications: Levothyroxine Sodium [Levothyroxine] 100 mcg PO DAILY 10/02/21 Physician Discharge Instructions: PROBLEM: Hyponatremia, Dehydration GOAL: Clear understanding of disease process INSTRUCTIONS: Okay to discharge home. Follow up with physicians per discharge instructions. Contact physician or return to [facility] for any complications or concerns. Call [phone] for any questions regarding your hospital stay. Diet: Regular Activity: Ad sunil IMMUNIZATION Influenza Vaccine Indicated: Yes Influenza Vaccine Given: No Date Given: Pneumonia Vaccine Indicated: No Pneumonia Vaccine Given: Date Given: Diet:Regular Activity:Ad sunil PHYSICIAN'S DISCHARGE INSTRUCTIONS Patient presented to the ED with hyponatremia, felt secondary to dehydration/hypovolemia from her preoperative prep. She initially had overcorrection of her sodium with normal saline. Nephrology was consulted and patient's IV fluids were changed to D5W. Patient's sodium downtrended to 127 and then 126 after discontinuation of IV fluids. Clinically she improved and was feeling back to her normal baseline. Repeat BMP was obtained and shows stable sodium. Patient was deemed stable for discharge home. On admission, she was noted to have mild elevated troponin, which trended down. Cardiology was consulted. Echocardiogram was obtained and normal. Suspect troponin leak secondary to some mild demand ischemia. Follow-up with nephrology in 2-3 weeks Follow-up with PCP within 1 week. Recommend repeat BMP in 1 week Followup: Erich Patterson MD [ACTIVE - CAN ADMIT] - Denise Cornejo FNP [Primary Care Provider] - Time spent managing pt's care (in minutes): 45
[2021-10-03 18:59] LABS: Potassium 4.1 mmol/L (3.5-5.1)
[2021-10-03 20:44] VITALS: BP 130/65; TEMP 97.1
== END 2021-10-03 20:56 | disposition home or self-care (01) | DRG 641 ==
LOC: ER 01:17 → ERHOLD 04:33 → 2ND 15:33
PROVIDERS: ADMIT Internal Medicine; ATTEND Internal Medicine
DX: E87.1 Hypo-osmolality and hyponatremia (principal); I24.8 Other forms of acute ischemic heart disease; E86.0 Dehydration; E86.1 Hypovolemia; E83.39 Other disorders of phosphorus metabolism; E87.6 Hypokalemia; R77.8 Other specified abnormalities of plasma proteins; E03.9 Hypothyroidism, unspecified; N36.44 Muscular disorders of urethra; I10 Essential (primary) hypertension; R11.2 Nausea with vomiting, unspecified; Z20.822 Contact with and (suspected) exposure to COVID-19
CPT/HCPCS: 0241U; 36415; 70450; 71045; 80048; 80053; 80076; 81003; 82533; 83690; 83735; 83880; 84100; 84132; 84439; 84443; 84484; 85025; 85610; 93005; 93306; 96361; 96365; 96366; 96375; 99285; J1650; J2405; J2597; J3411; J3480; J7030; J7040